=== PATIENT | female | born 1975 | race Caucasian/White ===

== ENCOUNTER 2017-12-22 23:57 | Emergency (ER) | payer OTHER, MEDICAID | END 2017-12-23 08:43 | disposition home or self-care (01) | LOC: E/R 23:57 | DX: T40.1X1A Poisoning by heroin, accidental (unintentional), initial encounter (principal); R40.2122 Coma scale, eyes open, to pain, at arrival to emergency department; R40.2212 Coma scale, best verbal response, none, at arrival to emergency department; R40.2312 Coma scale, best motor response, none, at arrival to emergency department | CPT/HCPCS: 99283; Z7502 ==